=== PATIENT | female | born 1980 ===

== ENCOUNTER → 2020-06-30 | Outpatient (CLI) | payer OTHER | END | disposition home or self-care (01) | LOC: NST 15:47 | PROVIDERS: ATTEND Obstetrics & Gynecology | DX: Z34.83 Encounter for supervision of other normal pregnancy, third trimester (principal) ==

== ENCOUNTER 2020-09-21 13:00 | Inpatient (IN) | payer OTHER ==
[~2020-09-21] VITALS: Ht 160 cm; Wt 73.5 kg
[2020-09-27] MEDS ORDERED: SINGULAIR5 MG PO (04:12)
[2020-09-27] MEDS ORDERED: PRENATAL TABLE1 EAC1 PO (04:12)
[2020-09-27] MEDS ORDERED: IRON325 MG PO (04:12)
== END 2020-09-29 11:16 | disposition home or self-care (01) | DRG 788 ==
LOC: LDR 09-27 03:01 → O/R 09-27 08:59 → SURG-SUITE 09-27 09:43 → SURH 10-07 13:00
PROVIDERS: ADMIT Obstetrics & Gynecology; ATTEND Obstetrics & Gynecology
PROC: 4A1HXFZ Monitoring of Products of Conception, Cardiac Rhythm, External Approach (ICD-10-PCS; 2020-09-27)
PROC: 10D00Z1 Extraction of Products of Conception, Low, Open Approach (ICD-10-PCS; principal; 2020-09-27 07:00)
DX: O61.0 Failed medical induction of labor (principal); O76 Abnormality in fetal heart rate and rhythm complicating labor and delivery; O62.0 Primary inadequate contractions; Z3A.38 38 weeks gestation of pregnancy; Z37.0 Single live birth

== ENCOUNTER 2020-09-23 15:38 | Outpatient (CLI) | payer OTHER | END 2020-09-23 17:30 | disposition home or self-care (01) | LOC: NST 15:38 | PROVIDERS: ATTEND Obstetrics & Gynecology | DX: Z34.83 Encounter for supervision of other normal pregnancy, third trimester (principal) ==

== ENCOUNTER 2022-07-26 10:50 | Outpatient (CLI) | payer OTHER ==
[~2022-07-26 10:50] MED LIST: IRON325 MG PO; PRENATAL TABLE1 EAC1 PO; SINGULAIR5 MG PO
== END 2022-07-26 10:53 | disposition home or self-care (01) ==
LOC: MAMO-SONO 10:50
PROVIDERS: ATTEND Obstetrics & Gynecology
DX: N63.21 Unspecified lump in the left breast, upper outer quadrant (principal); N63.12 Unspecified lump in the right breast, upper inner quadrant

== ENCOUNTER 2023-12-07 10:48 | Outpatient (CLI) | payer OTHER | END 2023-12-07 10:57 | disposition home or self-care (01) | LOC: MAMO-SONO 10:48 | PROVIDERS: ATTEND Obstetrics & Gynecology | DX: N63.12 Unspecified lump in the right breast, upper inner quadrant (principal); N63.21 Unspecified lump in the left breast, upper outer quadrant; N60.01 Solitary cyst of right breast ==

== ENCOUNTER 2025-04-08 13:26 | Outpatient (CLI) | payer OTHER | END 2025-04-08 13:43 | disposition home or self-care (01) | LOC: MAMO-SONO 13:26 | PROVIDERS: ATTEND Obstetrics & Gynecology | DX: N63.21 Unspecified lump in the left breast, upper outer quadrant (principal); N63.12 Unspecified lump in the right breast, upper inner quadrant ==